=== PATIENT | male | born 1960 | race Caucasian/White ===

== ENCOUNTER 2018-09-13 10:46 | Day surgery (SDC) | payer BC ==
[2018-09-07 11:38] VITALS: BMI 33.2
[~2018-09-13 10:46] MED LIST: ALPRAZolam 0.25 MG TAB PO PRN; ALPRAZolam 0.5 MG TAB PO PRN; ASPIRIN 325 MG TAB PO STA; ATORVASTATIN 80 MG TAB PO STA; NITROGLYCERIN SL TABS 0.4 MG TAB SUBLINGUAL PRN; SODIUM CHLORIDE 0.9% 1,000 ML in EMPTY BAG 1 BAG IV ONE
[2018-09-13] MEDS ORDERED: SODIUM CHLORIDE 0.9% 1,000 ML IV ONE (11:08)
[2018-09-13 11:36] VITALS: RESP 16; TEMP 97.8
[2018-09-13] MEDS ORDERED: MIDAZOLAM 2 MG/2 ML VIAL IVP ONE ×2 (11:59→12:09)
[2018-09-13] MEDS ORDERED: LIDOCAINE 1% INJ 10MG/ML (20 ML MDV) SQ ONE (12:02)
[2018-09-13] MEDS ORDERED: BIVALIRUDIN BOLUS 250 MG/50 ML IV ONE ×2 (12:24)
[2018-09-13] MEDS ORDERED: BIVALIRUDIN 250 MG in SODIUM CHLORIDE 0.9% 50 ML IV ONE ×2 (12:25→13:08)
[2018-09-13] MEDS ORDERED: ADENOSINE 90 MG in SODIUM CHLORIDE 0.9% 60 ML IVP ONE (12:30)
[2018-09-13] MEDS ORDERED: IOPAMIDOL-370 150ML BTL INJ ONE (12:54)
[2018-09-13] MEDS ORDERED: IOPAMIDOL-370 100ML BTL INJ ONE (13:19)
[2018-09-13] MEDS ORDERED: RX INFO: IV CONTRAST WAS GIVEN 1 EACH MISC MISCELLANE PRN (13:25)
[2018-09-13] MEDS ORDERED: SODIUM CHLORIDE 0.9% 1,000 ML IV SCH (13:30)
[2018-09-13 18:01] VITALS: PULSE 68
[2018-09-13 18:05] VITALS: BP 110/57
--- NOTE | 2018-09-13 21:47 | CC ---
CARDIAC CATHETERIZATION REPORT DATE OF SERVICE: September 13, 2018 PERFORMING PHYSICIAN: Doni Coronado MD, bushel girl. PROCEDURE PERFORMED: 1. Selective right and left coronary angiogram. 2. Left heart catheterization. 3. Fractional flow reserve FFR of the LAD. INDICATIONS: This is a 58-year-old gentleman with history of coronary artery disease and prior stenting of the RCA as well as hypertension and dyslipidemia, was seen in the office recently with symptoms of mild exertional dyspnea. He underwent a myocardial perfusion imaging stress test and was found to have small area of ischemia involving the inferior wall of the LV. Because of that, a heart catheterization was advised. APPROACH: Right common femoral artery. COMPLICATION: None. LEVEL OF SEDATION: Moderate with sedation length of 76 minutes. PROCEDURE DESCRIPTION: After obtaining an informed consent, the patient was brought to the cardiac oil field laborer. The right common femoral artery was cannulated using micropuncture technique and a micropuncture wire passed easily. Then I placed a 6-Maltese sheath in the right common femoral artery. I did selective right and left coronary angiogram using JR4 and JL4 catheters. Left heart catheterization was performed using 6-Maltese pigtail catheter. The procedure was completed without any complication. After that I did fractional flow reserve FFR of the LAD. Please see a separate paragraph for that. I attempted crossing the chronic total occlusion of the RCA briefly. The procedure was completed without any complication. SELECTIVE CORONARY ANGIOGRAM: 1. The right coronary artery is a large caliber vessel and it is a dominant vessel. The RCA is chronically occluded in the midportion. It fills by collaterals from the left coronary system. 2. The left main is angiographically normal. It bifurcates into left circumflex and left anterior descending artery. 3. The left circumflex is a large caliber vessel. It is a nondominant vessel. The left circumflex is angiographically normal. 4. The LAD: The proximal LAD has a lesion appeared to be in the range of 60% to 70%. We did FFR on it and that came into be nonischemic at 0.85. The mid LAD and distal LAD appeared to be angiographically normal. HEMODYNAMICS: The left ventricular end-diastolic pressure was about 10 mmHg without significant gradient across the aortic valve. FFR of the LAD. After zeroing the Doppler wire and equalizing between the Doppler wire and the guiding catheter which JL3.5 guiding catheter with an FFR per IV adenosine infusion. The FFR came in to be at 0.85 which is non ischemic. CONCLUSION: 1. 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 The RCA fills by collaterals from the left coronary system. 2. Intermediate to severe disease involving the proximal LAD. FFR was applied and came in to be nonischemic at 0.85. 3. Normal left ventricular end-diastolic pressure. POSTPROCEDURE MANAGEMENT: Given the above findings, I did recommend maximize medical treatment and follow up with the patient. Also I did recommend aggressive cholesterol control. MMODL / IJN: [id number] /
--- NOTE | 2018-09-13 21:59 | LTR ---
September 13, 2018 To: Dr. Howe Re: Josh Sanders (1960) Dear Dr. Howe, Mr. Josh Sanders underwent a heart catheterization today that revealed chronic total occlusion of the right coronary artery which fills by collaterals from the left coronary system and intermediate disease involving the left anterior descending artery. Given the above findings, I did recommend maximized medical treatment and followup with the patient. Thank you for allowing us to participate in his care. Please do not hesitate to call if you have any question or concerns. Sincerely, Doni Coronado MD MMYOANNAL / FESTUSN: [id number] /
--- NOTE | 2018-09-16 07:29 | CDI ---
Date: 09/16/18 CDS/Dumper Bailer Operator Name: Mami Roy Phone: If any questions, call Miriam Jacobsen Checker Stocker at [phone] Patient Name: Josh Sanders Admit Date: 09/13/18 Discharge Date: 09/13/18 ATTENTION: The [facility] Coding Staff appreciate your assistance in clarifying documentation. Please respond to the clarification below the line at the bottom and electronically sign. The [facility] Coding staff will review the response and follow-up if needed. Please note: Queries are made part of the Legal Health Record. If you have any questions, please contact the Checker Stocker. Dear Dr Coronado, Please provide clarification as to the location of the CAD. H&P states Mid RCA was stented in 2014. Procedure note states total and chronic occlusion of the mid RCA. Please clarify if this was in-stent stenosis oir the stenosis was in the artery. Thank you for your kind consideration. MTDD
--- NOTE | 2018-09-23 12:33 | CDI ---
Date: 09/23/17 CDS/Film And Video Graphics Designer Name: Mami Roy Phone: If any questions, call Miriam Jacobsen Geophysical Data Technician at [phone] Patient Name: Josh Sanders Admit Date: 09/13/18 Discharge Date: 09/13/18 ATTENTION: The [facility] Coding Staff appreciate your assistance in clarifying documentation. Please respond to the clarification below the line at the bottom and electronically sign. The [facility] Coding staff will review the response and follow-up if needed. Please note: Queries are made part of the Legal Health Record. If you have any questions, please contact the Geophysical Data Technician. Dear Dr. Coronado, Please provide clarification as to the location of the CAD. H&P states Mid RCA was stented in 2014. Procedure note states total and chronic occlusion of the mid RCA. Please clarify if this was in-stent stenosis or the stenosis was in the artery. Thank you for your kind consideration. In-Stent restenosis MTDD
== END 2018-09-13 18:06 | disposition home or self-care (01) ==
LOC: CATHCVL 10:46
PROVIDERS: ATTEND Internal Medicine Interventional Cardiology
DX: T82.855A Stenosis of coronary artery stent, initial encounter (principal); I25.110 Atherosclerotic heart disease of native coronary artery with unstable angina pectoris; I25.82 Chronic total occlusion of coronary artery; I10 Essential (primary) hypertension; E78.5 Hyperlipidemia, unspecified; E78.00 Pure hypercholesterolemia, unspecified; I25.2 Old myocardial infarction; Z95.5 Presence of coronary angioplasty implant and graft; Z79.82 Long term (current) use of aspirin; Z79.899 Other long term (current) drug therapy
CPT/HCPCS: 93571; 93458; C1769 ×5; C1887 ×3; C1894 ×2; C1725; C1760; J2250; J2001; J0583; J0153; Q9967 ×2